=== PATIENT | male | born 1990 | race African-American/Black ===

== ENCOUNTER 2016-04-23 16:34 | Emergency (ER) | payer OTHER ==
[~2016-04-23 16:34] MED LIST: NO MEDICATIONS
[2016-04-23 16:42] LABS: BASOPHIL% 0.4 % (0-2.5); EOSINOPHIL% 0.1 % (0.0-7.0); HEMATOCRIT 47.1 % (38.0-50.0); HEMOGLOBIN 15.4 gm/dL (13.0-16.0); LYMPHOCYTE# 1.6 X10e3 (1.0-3.5); LYMPHOCYTE% 24.9 % (17.0-45.0); MEAN CELL VOLUME 85.7 FL (83-96); MEAN CORPUSCULAR HEMOGLOBIN 28.1 PG (28-34); MEAN CORPUSCULAR HGB CONC 32.7 g/dL (30-36); MEAN PLATELET VOLUME 9.3 FL (6.5-11.5); MONOCYTE# 0.5 X10e3 (0-1.0); MONOCYTE% 7.9 % (3.0-12.0); NEUTROPHIL# 4.2 X10e3 (1.5-7.1); NEUTROPHIL% 66.7 % (40-75); PLATELET COUNT 185 X10e3 (140-420); WHITE BLOOD COUNT 6.3 X10e3 (4.0-10.5)
[2016-04-23 16:52] LABS: DIFF IND NO
[2016-04-23 16:55] LABS: URINE SOURCE CLEAN CATCH
[2016-04-23 16:57] LABS: URINE APPEARANCE CLEAR; URINE BILIRUBIN NEG (NEG); URINE BLOOD NEG (NEG); URINE COLOR YELLOW; URINE GLUCOSE NEG (NORM); URINE KETONE NEG (NEG); URINE LEUKOCYTE ESTERASE NEG (NEG); URINE NITRATE NEG (NEG); URINE PH 8.5 (5-8); URINE PROTEIN NEG (NEG); URINE SPECIFIC GRAVITY 1.015 (1.003-1.035); URINE UROBILINOGEN 0.2 MG/DL (NORM)
[2016-04-23 16:58] LABS: MICRO INDICATED? NO
[2016-04-23 17:06] LABS: ALBUMIN SERUM 4.8 g/dL (3.5-5.0); ALKALINE PHOSPHATASE 76 U/L (32-92); ALT (SGPT) 33 U/L (10-40); AMYLASE 12 U/L (0-46); AST (SGOT) 32 U/L (10-42); BILIRUBIN,TOTAL 0.8 mg/dL (0.2-2.0); BLOOD UREA NITROGEN 11 mg/dL (9-23); BUN/CREATININE RATIO 12.22; CALCIUM SERUM 9.7 mg/dL (8.4-10.2); CARBON DIOXIDE 22 mmol/L (22-31); CHLORIDE 103 mmol/L (100-111); CREATININE SERUM 0.9 mg/dL (0.6-1.4); GLOM FILT RATE Estimated ABOVE60 mL/min (>60); GLUCOSE FASTING 100 mg/dL (70-110); LIPASE 27 U/L (22-51); POTASSIUM 3.2 mmol/L (3.5-5.1); PROTEIN TOTAL SERUM 8.9 g/dL (6.0-8.3); SODIUM 135 mmol/L (135-145)
[2016-04-23 17:08] LABS: BILIRUBIN, DIRECT <0.1 mg/dL (0.0-0.2); BILIRUBIN,INDIRECT 0.7 mg/dL (0.0-0.9)
== END 2016-04-23 17:56 | disposition home or self-care (01) ==
LOC: SED 16:34
PROVIDERS: Physician Assistant
DX: R10.13 Epigastric pain (principal); J45.909 Unspecified asthma, uncomplicated; F17.210 Nicotine dependence, cigarettes, uncomplicated; Z90.89 Acquired absence of other organs
CPT/HCPCS: 36415; 80048; 80076; 81003; 82150; 83690; 85025; 96374; 96375; 99284; C9113; J1170; J2405